=== PATIENT | male | born 1970 | race Caucasian/White ===

== ENCOUNTER 2020-12-19 04:35 | Emergency (ER) | payer BC ==
[~2020-12-19] VITALS: Ht 188 cm; Wt 99.1 kg
[~2020-12-19 04:35] MED LIST: NO HOME MEDICATIONS; NORCO 325 MG-51 TAB PO; NORCO 325 MG-7.1 TAB PO; PERCOCET 325 MG1 TA2 PO; PERCOCET 500 MG1 TAB PO; PHENERGAN 25 TA25 MG PO; ZOFRAN ODT4 MG PO
[2020-12-19 04:41] VITALS: TEMP 97.6
[2020-12-19 05:21] LABS: BASO % 0.5 % (0.0-2.0); EOS # 0.2 (0.0-0.7); EOS % 2.7 % (0-4.0); GRAN % 62.1 % (42.2-75.2); HEMATOCRIT 45.5 % (42.0-52.0); HEMOGLOBIN 15.1 g/dl (13.5-18.0); LYMPH # 1.7 (1.2-3.4); LYMPH % 26.4 % (20.0-51.0); MEAN CELL VOLUME 89 fl (80.0-100.0); MEAN CORPUSCULAR HEMOGLOBIN 29 pg (27.0-31.0); MEAN CORPUSCULAR HGB CONC 33 g/dl (33.0-37.0); MEAN PLATELET VOLUME 12.9 fl (7.4-10.4); MONO # 0.5 (0.1-0.6); PLATELET COUNT 158 K/mm3 (130-400); RED BLOOD COUNT 5.14 M/mm3 (4.20-5.60); REDCELL DISTRIBUTION WIDTH-CV 13.1 % (11.5-14.5)
[2020-12-19 05:32] LABS: ALBUMIN 4.2 gm/dL (3.5-5.0); BILIRUBIN,TOTAL 0.3 mg/dL (0.0-1.0); CALCIUM 9.3 mg/dL (8.4-10.2); CREATININE, serum 1.01 (0.66-1.25); POTASSIUM 4.1 mmol/L (3.4-5.0); TOTAL PROTEIN 7.1 gm/dL (6.4-8.2)
[2020-12-19 05:46] LABS: COLLECTION METHOD CLEAN CATCH
[2020-12-19] MEDS ORDERED: FLOMAX 0.40.4 MG/CAP PO (05:51)
[2020-12-19] MEDS ORDERED: NORCO 325 MG-51 TAB PO (05:51)
[2020-12-19 05:56] LABS: MUCOUS Present /lpf; PH 8 (5-8); SQUAMOUS EPITHELIAL None Seen /hpf; URINE APPEARANCE Hazy; URINE BACTERIA None Seen /hpf; URINE BILIRUBIN Negative (NEGATIVE); URINE BLOOD Negative (NEGATIVE); URINE COLOR Yellow; URINE GLUCOSE Negative (NEGATIVE); URINE KETONE Negative (NEGATIVE); URINE LEUKOCYTE ESTERASE Negative (NEGATIVE); URINE NITRATE Negative (NEGATIVE); URINE PROTEIN(semi-quant) Negative (NEGATIVE); URINE UROBILINOGEN Negative (NEGATIVE)
[2020-12-19 06:16] VITALS: BP 137/87; PULSE 63
== END 2020-12-19 06:16 | disposition home or self-care (01) ==
LOC: COL.ER 04:35
PROVIDERS: Emergency Medicine
DX: N13.2 Hydronephrosis with renal and ureteral calculous obstruction (principal); I10 Essential (primary) hypertension
CPT/HCPCS: J1885; J2405; J3010; J7120

== ENCOUNTER 2021-02-02 13:38 | Outpatient (CLI) | payer BC ==
[~2021-02-02] VITALS: Ht 188 cm; Wt 95.4 kg
[~2021-02-02 13:38] MED LIST changes: +FLOMAX 0.40.4 MG/CAP PO
[2021-02-02 13:58] VITALS: BP 116/76; PULSE 74; TEMP 99.1
[2021-02-02] MEDS ORDERED: NORVASC 10MG10 MG PO (14:07)
[2021-02-02 14:15] VITALS: BP 136/80; PULSE 73
[2021-02-02 14:45] VITALS: BP 107/72; PULSE 68
[2021-02-02 15:00] VITALS: BP 116/76; PULSE 66
== END 2021-02-02 15:49 ==
LOC: EUO 13:38
DX: U07.1 COVID-19 (principal)
CPT/HCPCS: Q0244